=== PATIENT | male | born 1985 | race Caucasian/White ===

== ENCOUNTER 2020-08-30 13:56 | Emergency (ER) | payer OTHER, SELFPAY ==
--- NOTE | ~2020-08-30 | CT_ITS ---
EXAMINATION: CT facial bones wo con DATE: 08/30/2020 15:53 INDICATION: Left jaw pain. Injury. TECHNIQUE: Computed tomography (CT) of the facial bones and maxillofacial region was performed withou t intravenous contrast. Automated exposure control and iterative reconstruction technique were employ ed. The dose-length product was 340.57 mGy-cm. COMPARISON: None. FINDINGS: There is leftward deviation of the nasal septum. No fracture. There are carious lesions of teeth 1, 10, 15, and 16. The paranasal sinuses are clear. The mastoid air cells are normal. IMPRESSION: 1. No fracture. 2. Dental disease. Reviewed, dictated and finalized at location A. [facility]
[2020-08-30 13:58] VITALS: BP 157/78; PULSE 79; RESP 16; TEMP 36.8; O2SAT 96
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
[2020-08-30] MEDS: KETOROLAC (*BKC) 60 MG/2 ML VIAL IM (16:09)
[2020-08-30] MEDS: Please add drug allergy info to patient profile. 1 EACH XX (16:09)
== END 2020-08-30 16:45 | disposition home or self-care (01) ==
PROVIDERS: Emergency Provider Emergency Medicine
DX: S02.5XXA Fracture of tooth (traumatic), initial encounter for closed fracture (principal); W20.8XXA Other cause of strike by thrown, projected or falling object, initial encounter
CPT/HCPCS: 70486; 96372; 99283; J1885

== ENCOUNTER 2020-11-22 12:02 | Emergency (ER) | payer OTHER, SELFPAY ==
--- NOTE | ~2020-11-22 | CT_ITS ---
EXAMINATION: CT soft tissue neck w con EXAM DATE: 11/22/2020 14:43 INDICATION: Look for ludwigs angina, dental abscess. Lower jaw pain and swelling after tooth extracti on. TECHNIQUE: Spiral CT of the neck was performed following intravenous injection of 75 mL Omnipaque 350 . Axial, coronal and sagittal images were reviewed. The dose-length product (DLP) for this examinat ion was 558.16 mGy-cm. The exposure was tailored according to patient size (auto mA exposure control ), and iterative reconstruction (ASIR) was used as additional dose reduction technique. There is no prior study for comparison. FINDINGS: There is extensive left-sided predominant facial swelling, edema superficial and deep to th e platysmas muscle with some small reactive lymph nodes. No pathologically enlarged lymph nodes. No r im-enhancing fluid collection/abscess. The thyroid gland is unremarkable. The submandibular and pa rotid glands are symmetric. There is no cervical lymphadenopathy. There are no masses identified. The superior mediastinum is unremarkable. Parapharyngeal and pre-glottic fat planes are preser maddie. The opacified vasculature is patent. The orbits are unremarkable. Visualized sinuses and m astoid air cells are well aerated. There is cervical spondylosis. IMPRESSION: Left-sided predominant facial swelling, small reactive lymph nodes. No abscess. Reviewed, dictated and finalized at location A.
[2020-11-22 12:34] VITALS: BP 131/75; PULSE 72; RESP 16; TEMP 36.7; O2SAT 97
--- NOTE | 2020-11-22 13:37 | ED.GENADULT ---
HPI - General Adult General Chief complaint: Dental/Oral Stated complaint: dental pain after extraction Time Seen by Provider: 11/22/20 13:17 History of Present Illness HPI narrative: Patient is a 35-year-old male who comes to the ED today complaining of left lower jaw pain and swelling. Reports that he had a wisdom tooth removed from left lower jaw 2 days ago. Yesterday the pain and swelling developed and became worse this morning. He denies any fevers. Denies any trouble swallowing. Says that he feels like the floor for of his mouth is swollen too. The tooth extraction was done in [place]. Related Data Home Medications Medication Instructions Recorded Confirmed amoxicillin 250 mg PO Q12H 11/22/20 ibuprofen [Motrin] 400 mg PO Q6H 11/22/20 tramadol 50 mg PO Q4H PRN 11/22/20 Allergies Allergy/AdvReac Type Severity Reaction Status Date / Time No Known Allergies Allergy Verified 11/22/20 12:40 Review of Systems Constitutional: Constitutional: Reports as per HPI, Denies fever(s), Denies night sweats and Denies weakness ENT: Comments: See HPI Cardiovascular: Cardiovascular: Denies chest pain, Denies edema, Denies leg edema, Denies dyspnea and Denies orthopnea Respiratory: Respiratory: Denies cough and Denies dyspnea Gastrointestinal: Gastrointestinal: Denies abdominal pain, Denies constipation, Denies diarrhea, Denies nausea and Denies vomiting Musculoskeletal: Musculoskeletal: Denies abnormal gait, Denies back pain, Denies numbness and Denies tingling Neurologic: Denies Abnormal speech present, Denies abnormal gait, Denies numbness, Denies tingling and Denies weakness Psychiatric: Psychiatric: Denies homicidal ideation and Denies suicidal ideation [facility] Past Medical History Medical History (Updated 11/22/20 @ 15:35 by Michael Snow PA-C) No active medical problems Social History Social History (Updated 08/30/20 @ 15:34 by Sapna Mensah PA-C) Substance use: never Gender identity (if verbalized by the patient): Male Exam Const: General: cooperative, healthy appearing, comfortable, no acute distress, well developed, alert, awake and Physically active Orientation/consciousness: patient oriented x3 HENMT: Head: normal to inspection, normocephalic and atraumatic Ears: external ears normal General nose exam: Normal external nose present Eyes: Pupils: Equal, round and reactive pupils present EOM: EOMs intact bilaterally Neck: Neck: normal visual inspection Other: Edematous along the left lower jawline. There is some submental edema. No submental induration. No obvious floor of mouth swelling or tongue elevation. Recent wisdom tooth extraction left lower jaw but surrounding gumline does not have any significant edema or induration. Chest: Chest palpation & inspection: normal inspection of the chest and no tenderness Resp: Effort & Inspection: normal respiratory effort and able to speak in complete sentences Auscultation: clear to auscultation bilaterally Cardio: Rate: regular rate Rhythm: regular rhythm GI: Inspection: normal to inspection GI Palp: No abdominal tenderness : General: Yes no CVA tenderness Back/Spine/Pelvis: Back: no CVA tenderness Skin: General skin exam: normal color and no rashes or lesions noted Lesions: no lesions Neuro: General: patient oriented x3, no focal motor deficits and CN's II-XI intact bilaterally Cranial nerves: Yes Equal, round and reactive pupils present Speech: No Abnormal speech present Extrem: General: normal to inspection and full ROM Psych: Appearance: grossly normal and well kempt Mental Status: mental status grossly normal Speech and movement: Normal speech and movement present Affect: normal affect Thought process: Normal thought process present Course Reevaluation(s) Reevaluation #1: He has been taking the Augmentin that was prescribed by his dentist. Patient agreeable with plan for discharge and to go to his dentist of
[2020-11-22 13:57] LABS: Basophils Percent Auto 0.3 % (0.2-1.2); Eosinophils Absolute Auto 0.1 K/mm3 (0-0.3); Eosinophils Percent Auto 1.1 % (0-4.4); Hematocrit 38.2 % (42.0-52.0); Hemoglobin 13.1 g/dL (14.0-18.0); Immature Granulocyte Absolute 0.02 K/mm3 (0.00-0.031); Immature Granulocyte Percent A 0.2 % (0-0.5); Lymphocytes Absolute Auto 1.08 K/mm3 (0.9-3.2); Lymphocytes Percent Auto 12.2 % (18.3-44.2); Mean Corpuscular HGB Conc 34.3 g/dl (32-36); Mean Corpuscular Hemoglobin 31.5 pg (26-34); Mean Corpuscular Volume 91.8 fl (80-100); Mean Platelet Volume 10.3 fl (7.4-10.4); Monocytes Absolute Auto 0.8 K/mm3 (0.1-0.6); Monocytes Percent Auto 8.9 % (2.6-8.5); Neutrophils Absolute Auto 6.8 K/mm3 (1.3-6.7); Neutrophils Percent Auto 77.3 % (45.5-73.1); Platelet Count Result 214 k/mm3 (150-375); Red Blood Count 4.16 M/mm3 (4.6-6.20); Red Cell Distribution Width 13.6 % (11.5-14.5); White Blood Count 8.8 K/mm3 (4.5-10.0)
[2020-11-22] MEDS: KETOROLAC 30 MG/ML VIAL (*BKC) IV PUSH (14:01)
--- NOTE | 2020-11-22 14:02 | PC.NURSE ---
CT informed of iv placement.
[2020-11-22 14:21] VITALS: BP 118/75; PULSE 75; RESP 16; O2SAT 100
--- NOTE | 2020-11-22 14:21 | PC.NURSE ---
Tech at bedside to redraw bloodwork that lab rejected.
--- NOTE | 2020-11-22 14:33 | PC.NURSE ---
Pt to CT at this time.
[2020-11-22 14:39] LABS: Estimated CRCL calculation 120 ml/min; Estimated Glomerular Filt Rate > 60
[2020-11-22 14:47] LABS: Alanine Aminotransferase 18 U/L (4-50); Albumin Level 3.9 g/dL (3.5-5.1); Alkaline Phosphatase 54 U/L (38-126); Anion Gap 5 mmol/L (8-16); Aspartate Amino Transferase 20 U/L (17-59); Blood Urea Nitrogen 12 mg/dL (9-20); Calcium 8.9 mg/dL (8.4-10.2); Carbon Dioxide 30 mmol/L (22-30); Chloride 105 mmol/L (98-107); Estimated CRCL calculation 120 ml/min; Estimated Glomerular Filt Rate > 60; Glucose 88 mg/dL (75-110); Potassium 3.8 mmol/L (3.4-5.0); Sodium 140 mmol/L (137-145)
[2020-11-22 15:48] VITALS: BP 118/75; PULSE 72; RESP 16; O2SAT 100
== END 2020-11-22 15:49 | disposition home or self-care (01) ==
PROVIDERS: Physician Assistant Medical; Emergency Provider Emergency Medicine
DX: G89.18 Other acute postprocedural pain (principal)
CPT/HCPCS: 36415; 70491; 80053; 85025; 96374; 96375; 99284; J1100; J1885; Q9967

== ENCOUNTER 2021-10-30 12:37 | Emergency (ER) | payer OTHER, SELFPAY ==
--- NOTE | ~2021-10-30 | XR_ITS ---
EXAMINATION: XR chest 2V 10/30/2021 13:24 INDICATION: Left chest wall pain. PROCEDURE: 2 view chest COMPARISON: 12/10/2018 FINDINGS: The lungs are clear. The cardiomediastinal silhouette is within normal limits. There are no pleural effusions. There is no pneumothorax suspected. IMPRESSION: 1: NO ACUTE CARDIOPULMONARY DISEASE. Reviewed, dictated and finalized at location B.
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
--- NOTE | ~2021-10-30 | XR_ITS ---
EXAMINATION: XR shoulder LT min 2V DATE: 10/30/2021 13:24 INDICATION: Left shoulder pain. TECHNIQUE: 4 views of left shoulder were obtained. COMPARISON: None. FINDINGS: Bone alignment is normal. No fracture. Joint spaces are well maintained. IMPRESSION: 1. Normal left shoulder. Reviewed, dictated and finalized at location A. IMPRESSION: 1. Normal left shoulder.
[2021-10-30 12:44] VITALS: BP 150/88; PULSE 76; RESP 18; TEMP 36.8; O2SAT 100
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
[2021-10-30] MEDS: HYDROcodone/acetaminophen (*CRX) 5-325 MG TABLET 1 TAB PO (13:30)
[2021-10-30] MEDS: ORPHENADRINE CITRATE 100 MG TABLET.ER PO (13:46)
[2021-10-30 14:14] VITALS: PULSE 70; RESP 16; O2SAT 100
== END 2021-10-30 14:19 | disposition home or self-care (01) ==
PROVIDERS: Emergency Provider Emergency Medicine
DX: S06.9X9A Unspecified intracranial injury with loss of consciousness of unspecified duration, initial encounter (principal); S49.92XA Unspecified injury of left shoulder and upper arm, initial encounter; S39.92XA Unspecified injury of lower back, initial encounter; M47.816 Spondylosis without myelopathy or radiculopathy, lumbar region; V48.5XXA Car driver injured in noncollision transport accident in traffic accident, initial encounter
CPT/HCPCS: 70450; 71046; 72100; 72125; 73030; 99284; A9270

== ENCOUNTER 2022-05-30 18:38 | Emergency (ER) | payer OTHER, SELFPAY ==
--- NOTE | ~2022-05-30 | CT_ITS ---
EXAMINATION: CT abdomen pelvis w con INDICATION: Epigastric pain TECHNIQUE: Computed tomographic images of the abdomen and pelvis were obtained after the administrati on of 100 cc of Omnipaque 350 intravenous contrast. The dose-length product (DLP) was 299.70 mGy-cm. Automated exposure control and iterative reconstruction technique were employed. COMPARISON: 09/08/2018 FINDINGS: Minimal dependent atelectasis is present in the lung bases. The heart size is normal. The l iver, spleen, pancreas, and adrenal glands are normal. The gallbladder is contracted. The kidneys are unremarkable. No pathologically enlarged abdominal or pelvic lymph nodes are identified. There is no free intraperitoneal gas or evidence of bowel obstruction. Colonic diverticulosis is present without evidence of diverticulitis. The appendix is normal. IMPRESSION: 1. No CT correlate for the patient's symptoms. Reviewed, dictated and finalized at location F.
[2022-05-30 19:30] VITALS: BP 124/81; PULSE 79; RESP 16; TEMP 36.4; O2SAT 100
--- NOTE | 2022-05-30 21:39 | ED.BACK ---
HPI - Back Pain/Injury General Chief Complaint: Back Pain/Injury Stated Complaint: back pain Time Seen by Provider: 05/30/22 21:22 History of Present Illness HPI Narrative: 37-year-old male here for evaluation of acute on chronic back pain. Patient states that he has been experiencing back pain for the past 2 weeks and has been intermittent in nature, worse with certain positions. States that over the past 2 days, the pain has been quite severe in nature after bending over to [employer] his son. He has attempted Tylenol without significant relief. No incontinence or retention of bowel or bladder, saddle anesthesia. No history of IV drug use, fevers, chills, nausea, vomiting, weakness. 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 Related Data Home Medications Medication Instructions Recorded Confirmed ibuprofen 400 mg tablet 400 mg PO Q6H 11/22/20 Allergies Allergy/AdvReac Type Severity Reaction Status Date / Time No Known Allergies Allergy Verified 05/30/22 22:16 Review of Systems Review of Systems: Gen: Denies fevers or chills Eyes: Denies eye pain or visual change ENT: Denies congestion Respiratory: Denies shortness of breath or cough CV: Denies chest pain or palpitations GI: Denies abdominal pain nausea, emesis or diarrhea : denies burning, urgency, frequency or hematuria Musculoskeletal: Reports back pain. Neuro: Denies numbness, tingling, weakness or focal weakness Skin: Denies rash Except as documented, all other systems reviewed and negative [facility] Past Medical History Medical History No active medical problems Social History Social History (System 11/09/21 @ 16:33 by Brigid Wilson) Substance use: never Gender identity (if verbalized by the patient): Male Exam Narrative: APPEARANCE: Uncomfortable appearing. EYES: EOMI HEENT: Normocephalic, atraumatic, OMM RESPIRATORY: No respiratory distress Clear to auscultation bilaterally with no rhonchi wheezing or rales. CARDIOVASCULAR: Regular rate and rhythm without murmurs rubs or gallops. ABDOMINAL: Soft, nontender, nondistended, no rebound or guarding MUSCULOSKELETAL: No CVA tenderness. TTP to midline of L spine. Moves all extremities. No clubbing, cyanosis or edema. Straight leg raise negative. NEURO: Awake and alert. Following commands, speech normal, no focal deficits SKIN: Warm, dry. No rashes lesions or abrasions PSYCHIATRIC: Normal affect/mood Course Vital Signs Vital signs: Vital Signs Temperature 97.5 F L 05/30/22 19:30 Pulse Rate 79 05/30/22 19:30 Respiratory Rate 16 05/30/22 19:30 Blood Pressure 124/81 05/30/22 19:30 Pulse Oximetry 100 05/30/22 19:30 Oxygen Delivery Room Air 05/30/22 19:30 Temperature 97.5 F L 05/30/22 19:30 Pulse Rate 79 05/30/22 19:30 Respiratory Rate 16 05/30/22 19:30 Blood Pressure 124/81 05/30/22 19:30 Pulse Oximetry 100 05/30/22 19:30 Oxygen Delivery Room Air 05/30/22 19:30 MDM - Back Pain/Injury MDM Narrative Medical decision making narrative: 37-year-old male here for evaluation of acute on chronic low back pain over the past several days. He is uncomfortable appearing upon presentation but nontoxic, his vital signs are normal. He did have some midline tenderness to palpation of the L-spine. Differential diagnoses includes lumbago versus musculoskeletal spasm / strain versus sciatica. Less likely sciatica as straight leg raise test was negative. No back pain red flags on history or physical. Presentation not consistent with malignancy (lack of history of malignancy, lack of B symptoms), fracture (no trauma, no bony tenderness to palpation), cauda equina (no bowel or urinary incontinence/retention, no saddle anesthesia, no distal weakness), AAA, viscus perforation, osteomyelitis or epidural abscess (no IVDU, vertebral tenderness), renal colic, pyelonephritis (afebrile, no CVAT, no
[2022-05-30 21:56] LABS: Basophils Percent Auto 0.4 % (0.2-1.2); Eosinophils Absolute Auto 0.1 K/mm3 (0-0.3); Eosinophils Percent Auto 1.6 % (0-4.4); Hematocrit 38.2 % (42.0-52.0); Immature Granulocyte Absolute 0.01 K/mm3 (0.00-0.031); Immature Granulocyte Percent A 0.1 % (0-0.5); Lymphocytes Absolute Auto 2.22 K/mm3 (0.9-3.2); Mean Corpuscular Hemoglobin 31.3 pg (26-34); Mean Corpuscular Volume 91.8 fl (80-100); Mean Platelet Volume 9.8 fl (7.4-10.4); Monocytes Absolute Auto 0.5 K/mm3 (0.1-0.6); Monocytes Percent Auto 7.3 % (2.6-8.5); Neutrophils Absolute Auto 4.5 K/mm3 (1.3-6.7); Neutrophils Percent Auto 60.6 % (45.5-73.1); Platelet Count Result 206 k/mm3 (150-375); Red Blood Count 4.16 M/mm3 (4.6-6.20); Red Cell Distribution Width 13.9 % (11.5-14.5); White Blood Count 7.4 K/mm3 (4.5-10.0)
[2022-05-30 22:05] LABS: Alanine Aminotransferase 21 U/L (6-50); Albumin Level 4.1 g/dL (3.5-5.1); Alkaline Phosphatase 62 U/L (38-126); Anion Gap 7 mmol/L (8-16); Aspartate Amino Transferase 22 U/L (17-59); Bilirubin,Total 0.7 mg/dL (0.2-1.3); Blood Urea Nitrogen 16 mg/dL (9-20); Calcium 8.7 mg/dL (8.4-10.2); Carbon Dioxide 26 mmol/L (22-30); Chloride 106 mmol/L (98-107); Estimated CRCL calculation 109 ml/min; Estimated Glomerular Filt Rate > 60; Glucose 86 mg/dL (65-110); Lipase 273 U/L (23-300); Potassium 3.7 mmol/L (3.4-5.0); Sodium 139 mmol/L (137-145)
[2022-05-30] MEDS: LIDOCAINE 5% PATCH 1 PATCH TRANSDERM (22:17)
[2022-05-30] MEDS: KETOROLAC 15 MG/ML VIAL (*BKC) IV PUSH (22:17)
[2022-05-30] MEDS: CYCLOBENZAPRINE HCL 10 MG TABLET PO (23:19)
== END 2022-05-30 23:24 | disposition home or self-care (01) ==
PROVIDERS: Physician Assistant; Emergency Provider Emergency Medicine
DX: S39.012A Strain of muscle, fascia and tendon of lower back, initial encounter (principal); X50.0XXA Overexertion from strenuous movement or load, initial encounter
CPT/HCPCS: 36415; 74177; 80053; 83690; 85025; 96374; 99284; A9270; J1885; Q9967

== ENCOUNTER 2022-09-20 09:46 | Emergency (ER) | payer OTHER, SELFPAY ==
--- NOTE | ~2022-09-20 | CT_ITS ---
Noncontrast CT scan of the cervical spine Technique: Multiple contiguous axial [address] images of the cervical spine were obtained and rec onstructed in 2D sagittal and coronal planes on the acquisition scanner. Dose reduction technique was used on this scan by utilizing automated exposure control, adjustment of the mA and/or kV according to patient size. Clinical History: Pain Findings: No fractures or dislocations. There is mild uncovertebral joint degenerative change at C5- C6. There is mild to moderate degenerative disc change at C5-C6. No prevertebral soft tissue swelling . Impression: No fracture or subluxation of the cervical spine. Minimal degenerative change, as above. Reviewed, dictated and finalized at location . ET DEVELOPER Impression: No fracture or subluxation of the cervical spine. Minimal degenerative change, as above.
--- NOTE | ~2022-09-20 | CT_ITS ---
EXAMINATION: CT lumbar spine wo con DATE: 09/20/2022 12:40 INDICATION: Trauma pulled back while lifting TECHNIQUE: Computed tomography (CT) of the lumbar spine was performed without intravenous contrast. A utomated exposure control and iterative reconstruction technique were employed. The dose-length produ ct was 472.62 mGy-cm. COMPARISON: CT dated 05/30/2022 and 09/08/2018 FINDINGS: Alignment is normal. Chronic appearing mild anterior wedging at T11-L1. There are Schmorl's nodes along the inferior endplate of L1 and L4. No acute fracture. No change in appearance since 201 9 in a small region of benign sclerosis at the L5 vertebral body. There is moderate disc height loss at L1-L2. Mild disc height loss at L2-L3. Disc bulges resulting in multilevel mild central canal sten osis at L1-L2 through L5-S1. Minimal to mild lumbar facet osteoarthritis. There is moderate neural fo raminal stenosis bilaterally at L3-L4 and mild neural foraminal stenosis bilaterally at L2-L3 and L3- L4. Paravertebral soft tissues are unremarkable. . IMPRESSION: 1. Lumbar spondylosis, moderate at L1-L2 and mild in the more caudal lumbar spine. No acute osseous a nd L2. Reviewed, dictated and finalized at location A. CULTURAL SCIENCE PROFESSOR IMPRESSION: 1. Lumbar spondylosis, moderate at L1-L2 and mild in the more caudal lumbar spi ne. No acute osseous and L2.
[2022-09-20 10:48] VITALS: BP 132/106; PULSE 94; RESP 20; TEMP 36.5; O2SAT 100
[2022-09-20] MEDS: SODIUM CHLORIDE 0.9% IV 1,000 ML 999 ML IV CONT (13:01)
[2022-09-20] MEDS: KETOROLAC 30 MG/ML VIAL (*BKC) IV PUSH (13:01)
[2022-09-20] MEDS: diazePAM INJ (*CRX) 10 MG/2 ML SYRINGE 5 MG IV PUSH (13:02)
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
== END 2022-09-20 15:37 | disposition home or self-care (01) ==
PROVIDERS: Emergency Provider Emergency Medicine
DX: S39.012A Strain of muscle, fascia and tendon of lower back, initial encounter (principal); S16.1XXA Strain of muscle, fascia and tendon at neck level, initial encounter; M47.816 Spondylosis without myelopathy or radiculopathy, lumbar region; X50.9XXA Other and unspecified overexertion or strenuous movements or postures, initial encounter; Y93.F9 Activity, other caregiving
CPT/HCPCS: 72125; 72131; 96361; 96374; 96375; 99284; J1885; J3360; J7030

== ENCOUNTER 2023-03-10 12:15 | Emergency (ER) | payer BC, MEDICAID, SELFPAY ==
--- NOTE | ~2023-03-10 | XR_ITS ---
XR knee RT min 4V 03/10/2023 13:19 INDICATION: Left knee pain PROCEDURE: 4 views left knee COMPARISON: No prior studies for comparison. FINDINGS: Fracture, dislocation or subluxation is not identified. No significant joint effusion. The soft tissues appear within normal limits. No foreign bodies are identified. IMPRESSION: 1: NO ACUTE BONE OR JOINT ABNORMALITY IDENTIFIED. Reviewed, dictated and finalized at location A.
[2023-03-10 12:25] VITALS: BP 133/74; PULSE 67; RESP 18; TEMP 36.4; O2SAT 100
--- NOTE | 2023-03-10 13:38 | ED.GENADULT ---
HPI - General Adult General Chief complaint: Extremity Injury, Lower Stated complaint: knee injury Time Seen by Provider: 03/10/23 13:11 History of Present Illness HPI narrative: 37-year-old male present to the emergency department for evaluation of right knee pain. Patient reports just prior to arrival he stepped off a curb and felt a pop in his right medial knee. Patient states he feels his knee is more unstable. Patient denies any prior prescription on the knee but does have prior history of knee injuries from skateboarding and from baseball. Related Data Allergies Allergy/AdvReac Type Severity Reaction Status Date / Time No Known Allergies Allergy Verified 05/30/22 22:16 Review of Systems Review of Systems: All systems reviewed & are unremarkable except as noted in HPI and below PMFSH Past Medical History Medical History (Updated 03/10/23 @ 13:41 by Jn Interiano MD) No active medical problems Surgical History Surgical History (Updated 09/20/22 @ 15:07 by Jered Gilman MD) No pertinent past surgical history Social History Social History (System 11/09/21 @ 16:33 by Brigid Wilson) Substance use: never Gender identity (if verbalized by the patient): Male Exam Narrative: APPEARANCE: Well appearing, no pain, no distress, well-nourished. HEAD: normocephalic, atraumatic. EYES: PERRLA/EOMI, conjunctivae clear. RESPIRATORY: Airway patent, respirations nonlabored. Clear to auscultation bilaterally, no rales, rhonchi, wheezing. CARDIOVASCULAR: Regular rate and rhythm without murmurs rubs or gallops. ABDOMINAL: Soft, nontender, nondistended, normal bowel sounds MUSCULOSKELETAL: Right knee medial tenderness with effusion. No patellar tenderness to palpation. No lateral tenderness to palpation. No significant deformity NEURO: Alert. Cranial nerves II through XII intact. Good gait. Good coordination SKIN: Warm, dry. Normal Color PSYCHIATRIC: Normal affect/mood. Course Course Emergency Course: 37-year-old male present emergency department for evaluation of right knee pain. X-ray shows no acute fracture or dislocation. Clinical exam is concerning for a ligament injury. Patient was placed in a knee immobilizer and provided crutches for limited weightbearing. Patient was educated on pain control for home and encouraged to have close follow-up with orthopedics and with his primary care physician. All questions concerns were addressed and patient was well-appearing at time of discharge. Vital Signs Vital signs: Vital Signs Temperature 97.6 F 03/10/23 12:25 Pulse Rate 67 03/10/23 12:25 Respiratory Rate 18 03/10/23 12:25 Blood Pressure 133/74 03/10/23 12:25 Pulse Oximetry 100 03/10/23 12:25 Oxygen Delivery Room Air 03/10/23 12:25 Temperature 97.6 F 03/10/23 12:25 Pulse Rate 68 03/10/23 14:03 Respiratory Rate 15 03/10/23 14:03 Blood Pressure 128/72 03/10/23 14:03 Pulse Oximetry 99 03/10/23 14:03 Oxygen Delivery Room Air 03/10/23 12:25 Medical Decision Making Differential Diagnosis Differential Diagnosis: Ligament injury, patellar tendon injury, knee fracture Vital Signs Vital Signs: Vital Signs Temperature 97.6 F 03/10/23 12:25 Pulse Rate 67 03/10/23 12:25 Respiratory Rate 18 03/10/23 12:25 Blood Pressure 133/74 03/10/23 12:25 Pulse Oximetry 100 03/10/23 12:25 Oxygen Delivery Room Air 03/10/23 12:25 Temperature 97.6 F 03/10/23 12:25 Pulse Rate 68 03/10/23 14:03 Respiratory Rate 15 03/10/23 14:03 Blood Pressure 128/72 03/10/23 14:03 Pulse Oximetry 99 03/10/23 14:03 Oxygen Delivery Room Air 03/10/23 12:25 Imaging Data Radiologist's impression: Impressions Knee X-Ray 03/10/23 13:20 IMPRESSION: 1: NO ACUTE BONE OR JOINT ABNORMALITY IDENTIFIED. Discharge Plan Discharge Clinical Impression: Acute internal derangement of knee Patient Disposition: Home, Self-
[2023-03-10] MEDS: HYDROcodone/acetaminophen (*CRX) 5-325 MG TABLET 1 TAB PO (13:55)
[2023-03-10] MEDS: KETOROLAC 30 MG/ML VIAL (*BKC) IM (13:55)
[2023-03-10 14:03] VITALS: BP 128/72; PULSE 68; RESP 15; O2SAT 99
== END 2023-03-10 14:04 | disposition home or self-care (01) ==
LOC: ANHED 13:44
PROVIDERS: Emergency Provider Emergency Medicine
DX: M23.91 Unspecified internal derangement of right knee (principal); S89.91XA Unspecified injury of right lower leg, initial encounter; X50.9XXA Other and unspecified overexertion or strenuous movements or postures, initial encounter
CPT/HCPCS: 73564; 96372; 99283; A9270; J1885

== ENCOUNTER 2023-05-12 15:05 | Emergency (ER) | payer BC, SELFPAY ==
--- NOTE | ~2023-05-12 | CT_ITS ---
EXAMINATION: CT abdomen pelvis wo con DATE: 05/12/2023 17:10 INDICATION: rule out stone TECHNIQUE: Computed tomography (CT) of the abdomen and pelvis was performed without intravenous contr ast. Automated exposure control and iterative reconstruction technique were employed. The dose-length product was 336.38 mGy-cm. COMPARISON: 05/30/2022. FINDINGS: Lower thorax: Unremarkable Liver: Normal. Biliary/Gallbladder: Gallbladder is normal. No bile duct dilation. Pancreas: No mass or duct dilation. Spleen: Normal. Adrenals:No mass. Kidneys: Nonobstructing right midpole calcification. No suspicious mass, obstructing stone, or hydron ephrosis. GI tract: No small or large bowel dilation. Normal appendix. Mesentery/Peritoneum: No ascites, mass, or free air. Retroperitoneum: No mass. Pelvis: Pelvic organs are within normal limits. Soft Tissues: Soft tissues and body wall unremarkable. Bones: No acute osseous finding. IMPRESSION: No acute abdominopelvic process detected. Reviewed, dictated and finalized at location K.
[2023-05-12 15:24] VITALS: BP 139/83; PULSE 63; RESP 15; TEMP 36.7; O2SAT 100
[2023-05-12 16:28] VITALS: BP 147/86; PULSE 61; RESP 18; TEMP 36.5; O2SAT 100
--- NOTE | 2023-05-12 16:33 | ED.MALEGU ---
HPI - Male Genitourinary General Chief complaint: Urogenital-Male <Avery Hebert APRN - Last Filed: 05/12/23 16:42> Stated complaint: flank pain <Avery Hebert APRN - Last Filed: 05/12/23 16:42> Time Seen by Provider: 05/12/23 16:26 <Avery Hebert APRN - Last Filed: 05/12/23 16:42> Source: patient <Avery Hebert APRN - Last Filed: 05/12/23 16:42> Mode of arrival: ambulatory <Avery Hebert APRN - Last Filed: 05/12/23 16:42> Limitations: no limitations <Avery Hebert APRN - Last Filed: 05/12/23 16:42> History of Present Illness HPI Narrative: Mr. Rinaldi is a 38 year old male patient presenting to the clinic today with c/o right sided flank pain that started last night. States pain is a sharp/ pulsating pain. Rates pain 9/10. Pain pulsates toward his spine. Report urinary frequency since. Denies any painful urination. Denies fever, chills, nausea, or vomiting. No injury to his back. Denies any testicular pain. History of muscle strain in his back but states this feels more than just muscle pain. <Avery Hebert APRN - Last Filed: 05/12/23 16:42> Related Data Allergies/Adverse reactions: Allergies Allergy/AdvReac Type Severity Reaction Status Date / Time No Known Allergies Allergy Verified 05/12/23 19:08 <Avery Hebert APRN - Last Filed: 05/12/23 16:42> Review of Systems Review of Systems: A 10 system review of systems was completed on the patient and is negative except for what is stated in the HPI. Nursing and ancillary documentation was reviewed. <Micah Sun MD - Last Filed: 05/12/23 19:39> All systems reviewed & are unremarkable except as noted in HPI and below <Avery Hebert APRN - Last Filed: 05/12/23 16:42> PMFSH Past Medical History Medical History: Medical History No active medical problems <Avery Hebert APRN - Last Filed: 05/12/23 16:42> Surgical History Surgical History: Surgical History No pertinent past surgical history <Avery Hebert APRN - Last Filed: 05/12/23 16:42> Social History Social History: Social History Substance use: never Gender identity (if verbalized by the patient): Male <Avery Hebert APRN - Last Filed: 05/12/23 16:42> Comments At the time of my signature, I reviewed and agree with the nursing past medical, surgical, social, and family history. There is no relevant family history pertinent to the patient complaint. <Avery Hebert APRN - Last Filed: 05/12/23 16:42> Exam Narrative: GENERAL: Well-appearing, well-nourished, and in no acute distress. HEAD: Normocephalic, atraumatic. EYES: PERRLA and EOMI. ENT: Nares clear, no rhinorrhea or epistaxis. Mucous membranes moist. NECK: Supple. CHEST: Clear to auscultation. No respiratory distress. HEART: Regular rate and rhythm. No murmur heard. Normal peripheral pulses. ABDOMEN: Soft, nontender, nondistended, normal active bowel sounds. Flank: There is tenderness to palpation in the right flank area EXTREMITIES: Normal range of motion. No edema. SKIN: Warm, dry, no rash. NEURO: No focal deficits. Alert and oriented x3. PSYCH: Normal mood and affect. <Micah Sun MD - Last Filed: 05/12/23 19:39> Const: General: healthy appearing, no acute distress and alert <Avery Hebert APRN - Last Filed: 05/12/23 16:42> Nutritional Appearance: well nourished <Avery Hebert APRN - Last Filed: 05/12/23 16:42> Limitations: no limitations <Avery Hebert APRN - Last Filed: 05/12/23 16:42> HENMT: Head: normal to inspection <Avery Hebert APRN - Last Filed: 05/12/23 16:42> Cardio: Rate: regular rate <Avery Hebert APRN - Last Filed:
[2023-05-12 16:46] LABS: Basophils Percent Auto 0.7 % (0.2-1.2); Eosinophils Absolute Auto 0.1 K/mm3 (0-0.3); Eosinophils Percent Auto 1.8 % (0-4.4); Hematocrit 41.6 % (42.0-52.0); Hemoglobin 13.8 g/dL (14.0-18.0); Immature Granulocyte Absolute 0.02 K/mm3 (0.00-0.031); Immature Granulocyte Percent A 0.4 % (0-0.5); Lymphocytes Absolute Auto 1.72 K/mm3 (0.9-3.2); Lymphocytes Percent Auto 31.2 % (18.3-44.2); Mean Corpuscular HGB Conc 33.2 g/dl (32-36); Mean Corpuscular Volume 93.5 fl (80-100); Mean Platelet Volume 10.2 fl (7.4-10.4); Monocytes Absolute Auto 0.4 K/mm3 (0.1-0.6); Monocytes Percent Auto 7.4 % (2.6-8.5); Neutrophils Absolute Auto 3.2 K/mm3 (1.3-6.7); Neutrophils Percent Auto 58.5 % (45.5-73.1); Platelet Count Result 198 k/mm3 (150-375); Red Blood Count 4.45 M/mm3 (4.6-6.20); Red Cell Distribution Width 13.5 % (11.5-14.5); White Blood Count 5.5 K/mm3 (4.5-10.0)
[2023-05-12 16:47] LABS: Appearance Urine Clear (Clear); Bilirubin Urine Negative (Negative); Blood Urine Negative (Negative); Color Urine Yellow (Yellow); Glucose Urine UA Negative (Negative); Ketones Urine Negative (Negative); Leukocyte Esterase Ur Negative LEU/UL (Negative); Nitrate Urine Negative (Negative); Protein Urine Negative (Negative); Specific Grav Ur 1.007 (1.001-1.035); Urobilinogen Urine 0.2 mg/dL (<2.0); pH Urine 7.5 (5.0-9.0)
[2023-05-12 16:51] LABS: Add Urine Microscopic? NO
[2023-05-12 16:56] LABS: Alanine Aminotransferase 21 U/L (6-50); Albumin Level 4.7 g/dL (3.5-5.1); Alkaline Phosphatase 57 U/L (38-126); Anion Gap 8 mmol/L (8-16); Aspartate Amino Transferase 24 U/L (17-59); Bilirubin,Total 0.7 mg/dL (0.2-1.3); Blood Urea Nitrogen 9 mg/dL (9-20); Calcium 9.2 mg/dL (8.4-10.2); Carbon Dioxide 27 mmol/L (22-30); Chloride 102 mmol/L (98-107); Estimated CRCL calculation 117 ml/min; Estimated Glomerular Filt Rate > 60; Glucose 92 mg/dL (65-110); Potassium 4.1 mmol/L (3.4-5.0); Sodium 137 mmol/L (137-145)
[2023-05-12 17:28] VITALS: BP 122/75; PULSE 53; PULSE 56; RESP 18; TEMP 36.8; O2SAT 100; O2SAT 99
[2023-05-12 18:02] VITALS: BP 127/70; PULSE 68; RESP 18; TEMP 36.8; O2SAT 100
[2023-05-12] MEDS: KETOROLAC (*BKC) 60 MG/2 ML VIAL IM (19:31)
[2023-05-12] MEDS: ORPHENADRINE CITRATE 100 MG TABLET.ER PO (19:31)
[2023-05-12] MEDS: HYDROcodone/acetaminophen (*CRX) 5-325 MG TABLET 1 TAB PO (19:31)
== END 2023-05-12 20:02 | disposition home or self-care (01) ==
PROVIDERS: Nurse Practitioner Family; Emergency Provider Emergency Medicine
DX: R10.9 Unspecified abdominal pain (principal)
CPT/HCPCS: 36415; 74176; 80053; 81003; 85025; 96372; 99284; A9270; J1885

== ENCOUNTER 2023-05-29 11:53 | Outpatient (CLI) | payer BC, SELFPAY ==
--- NOTE | ~2023-05-29 | XR_ITS ---
EXAMINATION: XR lumbar spine 2-3V DATE: 05/29/2023 12:18 INDICATION: Low back pain TECHNIQUE: Anteroposterior and lateral views of the lumbar spine, and cone-down lateral view of the l umbosacral junction were obtained. COMPARISON: 10/30/2021; CT 09/20/2022 FINDINGS: Bone alignment is normal. There is no fracture. There is mild loss of intervertebral disc s pace height at L2-3 and moderate loss of disc space height at L1-2. Small degenerative osteophytes pr oject from the anterior endplates of multiple vertebral bodies. IMPRESSION: 1. Mild lumbar spondylosis without acute findings or significant interval change. Reviewed, dictated and finalized at location L. IMPRESSION: 1. Mild lumbar spondylosis without acute findings or significant interval dean torres
== END 2023-05-29 11:54 | disposition home or self-care (01) ==
PROVIDERS: PCP Internal Medicine; Visit Provider Internal Medicine
DX: M25.561 Pain in right knee (principal); M25.562 Pain in left knee; M47.816 Spondylosis without myelopathy or radiculopathy, lumbar region
CPT/HCPCS: 72100; 73564